=== PATIENT | male | born 1990 | race Caucasian/White ===

== ENCOUNTER 2017-04-29 21:02 | Inpatient (IN) | payer SELFPAY ==
[~2017-04-29] VITALS: Ht 185.4 cm; Wt 121.3 kg
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
--- NOTE | ~2017-04-29 | OR ---
PATIENT'S NAME: LAILA ZENDEJAS [facility] AGE: 26 Y [address] ROOM: [address] [place], [place] [address] LOCATION: GPCU ADMIT DATE: 04/29/2017 OR/Procedure Report DISCHARGE DATE: FAMILY PHYSICIAN: PHYSICIAN, UNKNOWN ATTENDING PHYSICIAN: CHRIS JULIAN SURGEON: Chris Julian DO ALL AROUND GEAR MACHINE OPERATOR: DATE OF PROCEDURE: 04/29/2017 PREOPERATIVE DIAGNOSIS: Grade 1 open tib-fib fracture, left lower extremity involving the distal middle third shaft of the tibia with a less than 1 cm opening at the anterior aspect of the tibia fracture. He also had multiple abrasions in the upper and lower extremities. POSTOPERATIVE DIAGNOSIS: Grade 1 open tib-fib fracture, left lower extremity involving the distal middle third shaft of the tibia with a less than 1 cm opening at the anterior aspect of the tibia fracture. He also had multiple abrasions in the upper and lower extremities. PROCEDURE: Irrigation and debridement of the open fracture, left lower extremity. There is no significant contamination. There is no significant periosteal stripping. He had confirmed his tetanus was up to date and received 1 g vancomycin due to history of possible MRSA and Ancef. ANESTHESIA: General endotracheal. INDICATIONS: As above. Risks and benefits well understood. Concerns for infection with open injury, he understands the potential for neurovascular injury, nonunion, malunion, wound problems, breakage of the hardware, screws, leg length inequalities due to comminution of the fracture, potential form of DVT, which could lead to pulmonary embolism, even . He had been well informed of the treatment options, risks, benefits, potential complications. The patient is medically optimized and with this orthopedic emergency of the open fracture, we plan to take him back. DESCRIPTION OF PROCEDURE: I had irrigated with 6 liters of normal saline at the wound. There was no significant periosteal stripping and normal neurovascular status. Periarticular clamps were placed on the fracture and then a Synthes 10 x 360 cm intramedullary virgilio was placed through a suprapatellar approach. A 3 cm incision was made above the patella. Bovie cautery utilized to obtain hemostasis. The fibers at the cord were split in a longitudinal fashion and a blunt trocar placed at appropriate position on AP and lateral that allowed to place the starting pin. The 12 mm drill was then placed over the pin and then the guidewire placed. The confirmed length 360 cm going down to the old physeal scar of the distal tibia. The virgilio was then PATIENT'S NAME: LAILA ZENDEJAS [facility] AGE: 26 Y [address] ROOM: [address] [address] [facility] AD[facility] DATE: 04/29/2017 OR/Procedure Report DISCHARGE DATE: FAMILY PHYSICIAN: PHYSICIAN, UNKNOWN ATTENDING PHYSICIAN: CHRIS JULIAN placed over the guidewire, locked statically and distally from medial and lateral approach through small incisions to the skin with careful attention to detail not to injure the saphenous vessels. The fracture was back slapped to obtain some compression and single screw placed proximally to take out rotation in the dynamic position. Second screw had been obtained, placed in a static position proximally from medial and lateral; however, it was unable to be placed through the virgilio. The fracture was near anatomic and with the fibula out to length in both AP and lateral views. He had good solid cortical bone. We will allow him to advance weightbearing up to 50% if no pain. The wounds were irrigated and closed. The quad tendon that had been split was closed with #1 Vicryl in a [id number] pattern and the subcutaneous tissue was closed with Monocryl followed by clare. COMPLICATIONS: None. ESTIMATED BLOOD LOSS: 75 mL. IMPLANTS: Synthes 10 mm Titanium x 360 cm in length IM virgilio. CHRIS JULIAN DO PH/modl /[id number] d: 04/30/17 0740 t: 05/01/17 1538, OPERATIVE SUMMARY
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
--- NOTE | ~2017-04-29 | OR ---
PATIENT'S NAME: LAILA ZENDEJAS [facility] AGE: 26 Y [address] ROOM: [address] [place], [place] [address] LOCATION: GPCU ADMIT DATE: 04/29/2017 OR/Procedure Report DISCHARGE DATE: 05/01/2017 FAMILY PHYSICIAN: Suresh Dunn MD ATTENDING PHYSICIAN: Germain Julian SURGEON: Germain Julian DO LIBRARIAN SPECIAL COLLECTIONS: DATE OF PROCEDURE: 04/30/[address] JULIAN / 06-04-2017 / TERA PREOPERATIVE DIAGNOSIS: Grade 1 open tib-fib fracture, left lower extremity involving the distal middle third shaft of the tibia with a less than 1 cm opening at the anterior aspect of the tibia fracture. He also had multiple abrasions in the upper and lower extremities. POSTOPERATIVE DIAGNOSIS: Grade 1 open tib-fib fracture, left lower extremity involving the distal middle third shaft of the tibia with a less than 1 cm opening at the anterior aspect of the tibia fracture. He also had multiple abrasions in the upper and lower extremities. PROCEDURE: Irrigation and debridement of the open fracture and IM virgilio, left lower extremity. There is no significant contamination. There is no significant periosteal stripping. He had confirmed his tetanus was up to date and received 1 g vancomycin due to history of possible MRSA and Ancef. ANESTHESIA: General endotracheal. INDICATIONS: As above. Risks and benefits well understood. Concerns for infection with open injury, he understands the potential for neurovascular injury, nonunion, malunion, wound problems, breakage of the hardware, screws, leg length inequalities due to comminution of the fracture, potential form of DVT, which could lead to pulmonary embolism, even . He had been well informed of the treatment options, risks, benefits, potential complications. The patient is medically optimized and with this orthopedic emergency of the open fracture, we plan to take him back. DESCRIPTION OF PROCEDURE: I had irrigated with 6 liters of normal saline at the wound. There was no significant periosteal stripping and normal neurovascular status. Periarticular clamps were placed on the fracture and then a Synthes 10 x 360 cm intramedullary virgilio was placed through a suprapatellar approach. A 3 cm incision was made above the patella. Bovie cautery utilized to obtain hemostasis. The fibers at the cord were split in a longitudinal fashion and a blunt trocar placed at appropriate position on AP and lateral that allowed to place the starting pin. The 12 mm drill was then placed over the pin and then the guidewire placed. The confirmed length 360 cm going down to the old physeal scar of the distal tibia. The virgilio was then PATIENT'S NAME: LAILA ZENDEJAS [facility] AGE: 26 Y [address] ROOM: [place] [address] LOCATION: GPCU ADMIT DATE: 04/29/2017 OR/Procedure Report DISCHARGE DATE: 05/01/2017 FAMILY PHYSICIAN: Suresh Dunn MD ATTENDING PHYSICIAN: Germain Julian placed over the guidewire, locked statically and distally from medial and lateral approach through small incisions to the skin with careful attention to detail not to injure the saphenous vessels. The fracture was back slapped to obtain some compression and single screw placed proximally to take out rotation in the dynamic position. Second screw had been obtained, placed in a static position proximally from medial and lateral; however, it was unable to be placed through the virgilio. The fracture was near anatomic and with the fibula out to length in both AP and lateral views. He had good solid cortical bone. We will allow him to advance weightbearing up to 50% if no pain. The wounds were irrigated and closed. The quad tendon that had been split was closed with #1 Vicryl in a [id number] pattern and the subcutaneous tissue was closed with Monocryl followed by clare. COMPLICATIONS: None. ESTIMATED BLOOD LOSS: 75 mL. IMPLANTS: Synthes 10 mm Titanium x 360 cm in length IM virgilio. GERMAIN JULIAN DO PH/modl /[id number] CORRECTED PER DR. JULIAN / 06-04-2017 / KLD d: 04/30/17 0740 t: 06/09/17 1454, OPERATIVE SUMMARY
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
[2017-04-30] MEDS ORDERED: MOTRIN800 MG PO (04:38)
[2017-04-30 05:07] LABS: HEMATOCRIT 42.2 % (37.0-53.0); HEMOGLOBIN 14.4 g/dL (12.0-17.0)
[2017-05-01] MEDS ORDERED: NORCO 5-325 TA1 EACH PO (15:33)
[2017-05-01] MEDS ORDERED: ASPIRIN EC325 MG PO (15:36)
== END 2017-05-01 16:55 | disposition disaster alternative care site (69) | DRG 494 ==
LOC: GACC 21:02 → GPCU 23:16
PROVIDERS: ADMIT Orthopaedic Surgery
PROC: 0QHH06Z Insertion of Intramedullary Internal Fixation Device into Left Tibia, Open Approach (ICD-10-PCS; principal; 2017-04-29)
DX: S82.202B Unspecified fracture of shaft of left tibia, initial encounter for open fracture type I or II (principal); S82.402B Unspecified fracture of shaft of left fibula, initial encounter for open fracture type I or II; V28.4XXA Motorcycle driver injured in noncollision transport accident in traffic accident, initial encounter
CPT/HCPCS: C1713; J0690; J2270; J3010; J3370; J7050; J7120